=== PATIENT | female | born 1980 | race Caucasian/White ===

== ENCOUNTER → 2020-09-04 | Outpatient (CLI) | payer OTHER ==
--- NOTE | 2020-09-05 09:08 | XR ---
EXAMINATION TYPE: XR KUB DATE OF EXAM: 09/04/2020 COMPARISON: None HISTORY: Renal calculus, right flank pain x3 weeks TECHNIQUE: Abdomen is examined in supine view. FINDINGS: There are several calcifications within the pelvis more likely related to phleboliths. Dist al right ureteral stone however is not excluded. No suspicious calcifications overlie the kidneys. Normal colonic bowel gas is present. Psoas margins are normal. Endometrium is not evident. Scoliosis lumbar spine. IMPRESSION: 1. Suspected phleboliths within the pelvis. Distal right ureteral stones are not excluded.
== END | disposition home or self-care (01) ==
LOC: RADXRMAIN 13:59
PROVIDERS: ATTEND Urology
DX: R10.9 Unspecified abdominal pain (principal)
CPT/HCPCS: 74018

== ENCOUNTER → 2020-09-17 | Outpatient (CLI) | payer OTHER ==
--- NOTE | 2020-09-17 14:03 | CT ---
EXAMINATION TYPE: CT abdomen pelvis wo con DATE OF EXAM: 09/17/2020 HISTORY: Right ureteral calculus CT DLP: 934 mGycm. Automated Exposure Control for Dose Reduction was Utilized. TECHNIQUE: CT scan of the abdomen and pelvis is performed without oral or IV contrast. COMPARISON: NONE FINDINGS: Within the limitations of a non-contrast study, the following observations are made. LUNG BASES: No significant abnormality is appreciated. LIVER/GB: Cholecystectomy clips are noted. PANCREAS: No significant abnormality is seen. SPLEEN: No significant abnormality is seen. ADRENALS: No significant abnormality is seen. KIDNEYS: No left-sided renal calculi or hydronephrosis. Mild fullness right renal pelvis and proximal ureter without obstructing calculus clearly seen. Poor visualization of the ureter at level of pelvi c brim near expected location of right ovary. No intraluminal calculus in the bladder. BOWEL: Normal-appearing appendix ascends from the cecum in the right pelvis. GENITAL ORGANS: Uterus surgically absent. Scattered bilateral pelvic phleboliths. Normal size symmetr ic remnant ovary suspected axial image 108. Correlate clinically. LYMPH NODES: No definitive greater than 1cm abdominal or pelvic lymph nodes are appreciated. OSSEOUS STRUCTURES: Moderate disc space narrowing L4-L5 and L5-S1 levels. OTHER: No significant additional abnormality is seen. IMPRESSION: Mild to minimal right-sided hydronephrosis remains present. No obstructing calculus clear ly seen. Finding presumed product of recently passed stone. No residual renal calculi identified bila terally.
== END | disposition home or self-care (01) ==
LOC: RADCTMAIN 11:46
PROVIDERS: ATTEND Urology
DX: N13.30 Unspecified hydronephrosis (principal)
CPT/HCPCS: 74176